=== PATIENT | female | born 1960 | race Caucasian/White ===

== ENCOUNTER 2020-02-19 01:20 | Outpatient (CLI) | payer MEDICARE, MEDICAID, SELFPAY ==
[2020-02-19 19:25] LABS: SARS-CoV-2 RNA PCR Negative
== END 2020-02-19 01:21 | disposition home or self-care (01) ==
LOC: ANHCOVIDDT 01:20
PROVIDERS: PCP Internal Medicine; Visit Provider Plastic Surgery
DX: Z01.812 Encounter for preprocedural laboratory examination (principal); Z11.59 Encounter for screening for other viral diseases
CPT/HCPCS: 87635; C9803; U0003

== ENCOUNTER 2020-02-21 01:01 | Day surgery (SDC) | payer MEDICARE, MEDICAID, SELFPAY ==
[2020-02-07 14:22] VITALS: BMI 35.1
[2020-02-21 06:45] VITALS: BP 113/68; PULSE 85; TEMP 36.1; O2SAT 97
[2020-02-21] MEDS: LACTATED RINGERS 1,000 ML 30 ML IV CONT (06:48)
--- NOTE | 2020-02-21 07:04 | HP_ITS ---
DATE OF SERVICE: 02/21/2020 PREOPERATIVE DIAGNOSIS: Nodule of unspecified behavior of the left nasal lobule. HISTORY: Shannon is 60. She is a patient of Dr. Duron, who presented on 02/06/2020 to my office with enlarging nodule on the left nasal lobule. It was 4 mm or so at that time, has raised about 2.5 mm. She pick at it, scabs and cycle repeats. There has been no infection, mass is slightly loosened and rough on the surface and seems consistent with a basal cell carcinoma. We have explained the purpose of the surgery that we will be taking this off and have it tested right away and treated accordingly, which may lead to the need for a skin graft or a local tissue transfer. She prefers to do this under MAC anesthetic. She is aware there will be scarring and may be some embarrassment of the airway on one side of her nose. There can be deformity of the nose. There could possibly be need for additional surgery to support the nasal airway. She would like to proceed with this. ALLERGIES: REVEALS SHE HAS UNTOWARD GI SYMPTOMS WHEN TAKING VICODIN, SHE WOULD RATHER ABSTAIN. NO OTHER KNOWN ALLERGIES TO MEDICATIONS. MEDICATIONS: Current medication list includes: 1. Gabapentin. 2. Amitriptyline. 3. Sertraline. 4. Stool softener. 5. Hydrochlorothiazide. 6. Oxybutynin. PRIOR SURGERIES: Include tonsillectomy, hysterectomy, a port installed in 2012. She has had a colostomy in 2012. Cancer of the rectum in 2012, 4 hernias repaired. She has had her port removed and she has had a revision of the colostomy in 2014. She continues to be a tobacco smoker. REVIEW OF SYSTEMS: Indicates she has gastric reflux. She has had a history of shingles. FAMILY HISTORY: Noncontributory. SOCIAL HISTORY: She lives in [place]. Does not list employment. PHYSICAL EXAMINATION: GENERAL: Reveals a pleasant woman who speaks for herself. She is 5 feet 5 inches, weighs 210 pounds. HEENT: Reveals the lesion as mentioned above. There is no palpable adenopathy. CHEST: Clear to auscultation. HEART: Regular rate and rhythm by palpation. ABDOMEN: Soft, nontender. EXTREMITIES: Normal. ASSESSMENT: Neoplasm, unspecified behavior of the left nasal lobule. PLAN: Excision with frozen section and reconstruction as indicated under MAC anesthetic. D I MT: Harriett
--- NOTE | 2020-02-21 07:07 | P.PNAN_ITS ---
Anes - Initial Pre Proc Eval Procedure: Operation Date: 02/21/20 07:30 Proposed Procedures p Excision of Nodule Left Nasal Lobule With Frozen Section And Local Tissue Transfer Or Full Thickness Skin Graft - Marino Cuevas MD Date/Time: 02/21/20 07:07 Surgeon: Marino Cuevas MD Pre Op Diagnosis: Nodule of Left Nasal Lobule Patient Data Age: 60 Gender: F Height: 5 ft 5 in Weight: 95.7 kg Last Vital Signs Temp 96.9 F L 02/21/20 06:45 Pulse 85 02/21/20 06:45 BP 113/68 02/21/20 06:45 Pulse Ox 97 02/21/20 06:45 Allergies Allergy/AdvReac Type Severity Reaction Status Date / Time hydrocodone AdvReac SEVERE N/V Verified 02/07/20 14:23 Home Medications Medication Instructions Recorded Confirmed Type amitriptyline 100 mg PO HS 02/07/20 02/21/20 History docusate sodium [Colace] 100 mg PO DAILY 02/07/20 02/21/20 History gabapentin 800 mg PO TID 02/07/20 02/21/20 History hydrochlorothiazide 25 mg PO DAILY 02/07/20 02/21/20 History omeprazole 40 mg PO DAILY 02/07/20 02/21/20 History oxybutynin chloride 10 mg PO DAILY 02/07/20 02/21/20 History sertraline 100 mg PO DAILY 02/07/20 02/21/20 History Patient hx anesthesia problems: none Family hx anesthesia problems: none [facility] Past Medical History Medical History (Updated 02/21/20 @ 07:07 by Rich Salas MD) Anxiety Migraine Peripheral neuropathy Social History Social History Smoking packs per day: 1 Smoking cigarettes per day: 20.0 Years smoked: 30 Smoking pack-years: 30.00 Smoking status: Current every day smoker Spiritual care concerns: No Anes - Eval Final PreProcedure Day of Procedure 02/21/20 07:07 Patient weight: overweight Heart: regular rate and rhythm Lungs: clear to auscultation Airway: Mallampati scale class II Neurological: alert and oriented Last oral intake: >/= 8 hours ASA classification: II Emergent: no Anesthetic plan: proceed Anesthesia type and monitoring: general GIVS (may use LMA) and standard monitoring Informed Consent: The patient's anesthetic plan and its attendant risks and benefits were discussed with the patient/family/POA. Questions were solicited and answers provided to the satisfaction of the patient/family/POA.
--- NOTE | 2020-02-21 07:08 | WPDHPUPDATE1 ---
History and Physical Update Update Date/Time: 02/21/20 07:08 History and Physical has been reviewed, including an updated exam of the patient. There are NO changes in the patient's condition. Risks, benefits, and alternatives have been discussed and questions answered. Patient agrees to proceed with procedure.
[2020-02-21] MEDS: LIDO 1%/EPINEPHRINE 1:100,000 20 ML VIAL INFILTRATE (07:53)
[2020-02-21] MEDS: BACITRACIN OINTMENT 15 GM TUBE 1 APPLIC TOPICAL (08:26)
--- NOTE | 2020-02-21 08:33 | PM.OP ---
Procedure Note - Brief Procedure Note - Brief Date of procedure: 02/21/20 Pre-op diagnosis: Nodule of Left Nasal Lobule Post-op diagnosis: other (Chronic folliculitis with cyst of left nasal lobule.) Procedure performed: Shave excision of chronic folliculitis of left nasal lobule with FS and no wound repair. Anesthesia: other (General IV sedation) Surgeon: Marino Cuevas MD Estimated blood loss (mL): 2 Drains: No Packing: No Pathology: yes Complications: No immediate complications Condition: stable Disposition: same day
[2020-02-21 08:34] VITALS: BP 129/83; PULSE 72; RESP 16; O2SAT 93
[2020-02-21 09:00] VITALS: BP 158/79; PULSE 78; RESP 16
--- NOTE | 2020-02-21 09:16 | SUR.PHASEII ---
0905 - dr. hankins in room talking with patient
[2020-02-21 09:30] VITALS: BP 158/80; PULSE 78; RESP 16
--- NOTE | 2020-02-21 11:40 | PM.PROC ---
Procedure Note - Detailed Date of procedure: 02/21/20 Pre-op diagnosis: Nodule of Left Nasal Lobule Post-op diagnosis: other (Chronic folliculitis with sebaceous cyst.) Procedure performed: 0.6 cm shave excision of nodule of left nasal lobule with FS and no repair of the wound. Description of procedure: The firm nodule on the left lobule of the patient's nose was marked in the holding area. She was taken to the operating room and placed supine on the operating table. A time-out was held and confirmed. She was given some IV sedation. The site was locally infiltrated with 1% lidocaine with epinephrine. A vertical incision was incised around the skin nodule to a depth of 1 mm. The lesion was then taken off into the deep dermis with the shave technique using a 15 C blade. the specimen sent to pathology. The pathologist reports that the lesion is not a tumor but appears to be chronic folliculitis with a sebaceous cyst. I elected to leave the wound to heal by secondary intention. Some electrocautery was used to ensure hemostasis and a Band-Aid was applied and she is discharged home with instructions in wound care and follow-up. No prescriptions were given Anesthesia: MAC Surgeon: Marino Cuevas MD
== END 2020-02-21 09:45 | disposition home or self-care (01) ==
PROVIDERS: PCP Internal Medicine; Visit Provider Plastic Surgery
PROC: (CPT 11441; principal; 2020-02-21 07:30)
DX: L30.9 Dermatitis, unspecified (principal); G62.9 Polyneuropathy, unspecified; F41.8 Other specified anxiety disorders; F17.210 Nicotine dependence, cigarettes, uncomplicated
CPT/HCPCS: 11441; 88305; 88331; A9270; J2250; J2405; J2704; J3010; J7120